=== PATIENT | male | born 1960 | race Caucasian/White ===

== ENCOUNTER 2020-12-15 11:14 | Emergency (ER) | payer OTHER ==
[~2020-12-15] VITALS: Ht 170.2 cm; Wt 90.7 kg
--- NOTE | ~2020-12-15 | EMS ---
[address] [address] EMS Patient Care Report Name: JANIE CHEN Room #: PRE ER M.R.#: [id number] Admission: Attend Phys: Discharge: Date of : 58 Report #: [id number] THIS REPORT FOR: //name// Report Transmitted: 12/15/2020 10:56 EMS Care Summary [place], [place]/[facility] Incident [id number] @ 12/15/2020 10:45 Incident Location [address] [place] [id number] Patient JANIE CHEN Male, 60 Years 1960 Patient Address [address] [place] [id number] Patient History Hypertension (HTN), Patient Allergies No known allergies, Patient Medications Lisinopril, Chief Complaint LOWER BACK PAIN Disposition Transported No Lights/[place] Dispatch Reason Falls Transported To [facility] Narrative UPON ARRIVAL PT SITTING UPRIGHT AGAINST WALL CONSCIOUS AND ALERT. PT HAD FALLEN THROUGH THE CEILING TO THE GROUND. PT STATES HE LANDED ON HIS BACK AND DENIES HITTING HIS HEAD OR ANY LOC. PT'S ONLY COMPLAINT IS LOWER BACK PAIN. PT WOULD LIKE TO SEE IF HE CAN STAND OK AND IS ASSISTED TO HIS FEET. BACK PAIN WORSE [address] [address] EMS Patient Care Report Name: JANIE CHEN Room #: PRE Asuncion.#: [id number] Admission: Attend Phys: Discharge: Date of : 58 Report #: [id number] WITH MOVEMENT. PT ASSISTED ONTO COT AND TRANSPORTED TO [facility]. Initial Vitals @11:07P: 96,CO: 2,SpO2: 95, @11:07P: 94,R: 16,BP: 133/80,GCS: 15,SpO2: 94,Revised Trauma: 12, @10:56P: 101,R: 16,BP: 130/84,Pain: 8/10,GCS: 15,SpO2: 96,Revised Trauma: 12, Assessments @10:52MENTAL:Time Oriented,Place Oriented,Event Oriented,Person Oriented,SKIN:HEENT:Head/Face: No Abnormalities,Neck/Airway: No Abnormalities,LUNG SOUNDS:General: No Abnormalities,ABDOMEN:General: No Abnormalities,PELVIS//GI:No Abnormalities,EXTREMITIES:Left Arm: No Abnormalities,Right Arm: No Abnormalities,Left Leg: No Abnormalities,Right Leg: No Abnormalities,PULSE:Radial: 2+ Normal,NEURO:No Abnormalities, Impression Back Pain Procedures @10:52ALS AssessmentResponse: UnchangedSucceeded@10:55Saline Lock 10cc (18 ga) Site: Antecubital-LeftResponse: UnchangedSucceeded@10:54Spinal Motion RestrictionResponse: UnchangedSucceeded Timeline 10:44,Call Received 10:44,Dispatch Notified 10:45,Dispatched 10:46,En Route 10:50,On Scene 10:51,At Patient 10:52,ALS Assessment,Response: UnchangedSucceeded, 10:54,Spinal Motion Restriction,Response: UnchangedSucceeded, 10:55,Saline Lock 10cc 18 ga Site: Antecubital-Left,Response: UnchangedSucceeded, 10:56,BP: 130/84 M,PULSE: 101,RR: 16 R,SPO2: 96 Ox,ETCO2: ,BG: ,PAIN: 8,GCS: 15, 11:00,Depart Scene 11:07,BP: / M,PULSE: 96,RR: R,SPO2: 95 Ox,ETCO2: ,BG: ,PAIN: ,GCS: , 11:07,BP: 133/80 M,PULSE: 94,RR: 16 R,SPO2: 94 Ox,ETCO2: ,BG: ,PAIN: ,GCS: 15, 11:22,At Destination 11:31,Call Closed Disclaimer v1.1 Copyright 2020 [employer] This EMS Care Summary contains data elements from the applicable legal record (which may be displayed differently). It is designed to provide pertinent [address] [address] EMS Patient Care Report Name: GOYONEGROJANIE ZHOU Room #: PRE ER M.R.#: [id number] Admission: Attend Phys: Discharge: Date of : 58 Report #: [id number] information for the following purposes: continuity of care, clinical quality, and state data reporting. The complete legal record is available to ED staff and administrators of the receiving hospital in [employer]'s Patient Tracker. All data is provided "as is."
[2020-12-15 11:34] LABS: ABSOLUTE NEUTROPHILS 3.6 thou/uL (1.4-8.2); BASOPHILS 0.9 % (0.0-2.0); EOSINOPHILS 2.5 % (0.0-3.0); HEMATOCRIT 40.9 % (42.0-52.0); HEMOGLOBIN 13.6 gm/dL (14.0-18.0); LYMPHOCYTES 32.3 % (24.0-44.0); MCH 29.1 pg (26.0-34.0); MCHC 33.2 g/dL (28.0-37.0); MCV 87.6 fL (80.0-100.0); MONOCYTES 9.3 % (1.0-8.0); PLATELET COUNT 277 thou/uL (150-400); RBC 4.67 mil/uL (4.50-6.00); RDW 14.4 % (10.5-14.5); WBC 6.5 thou/uL (4.0-11.0)
[2020-12-15 11:38] LABS: CALCIUM 6.2 mg/dL (8.5-10.1); CREATININE 0.7 mg/dL (0.7-1.3)
[2020-12-15 11:55] LABS: POTASSIUM 2.7 mmol/L (3.5-5.1)
[2020-12-15] MEDS ORDERED: NAPROSYN500 MG PO (12:56)
[2020-12-15] MEDS ORDERED: FLEXERIL PO (12:56)
[2020-12-15 12:58] VITALS: BP 133/87
== END 2020-12-15 12:58 | disposition home or self-care (01) ==
LOC: ER 11:14
PROVIDERS: Emergency Medicine
DX: S30.0XXA Contusion of lower back and pelvis, initial encounter (principal); W17.89XA Other fall from one level to another, initial encounter; Y93.89 Activity, other specified; Y92.89 Other specified places as the place of occurrence of the external cause; Y99.8 Other external cause status